=== PATIENT | male | born 1940 | race Caucasian/White ===

== ENCOUNTER 2021-01-23 10:01 | Outpatient (CLI) | payer BC | END 2021-01-23 10:02 | disposition home or self-care (01) | LOC: CSHWCC 10:01 | PROVIDERS: ATTEND Nurse Practitioner Family | DX: I87.332 Chronic venous hypertension (idiopathic) with ulcer and inflammation of left lower extremity (principal); E10.622 Type 1 diabetes mellitus with other skin ulcer; L97.222 Non-pressure chronic ulcer of left calf with fat layer exposed; L97.322 Non-pressure chronic ulcer of left ankle with fat layer exposed; R60.0 Localized edema; D64.9 Anemia, unspecified; E03.8 Other specified hypothyroidism; E10.40 Type 1 diabetes mellitus with diabetic neuropathy, unspecified; E78.2 Mixed hyperlipidemia; I10 Essential (primary) hypertension; I87.2 Venous insufficiency (chronic) (peripheral); W17.2XXD Fall into hole, subsequent encounter | CPT/HCPCS: 11042; 99213; G0463 ==

== ENCOUNTER 2021-02-06 09:17 | Outpatient (CLI) | payer BC | END 2021-02-06 09:18 | disposition home or self-care (01) | LOC: CSHWCC 09:17 | PROVIDERS: ATTEND Nurse Practitioner Family | DX: I87.332 Chronic venous hypertension (idiopathic) with ulcer and inflammation of left lower extremity (principal); E10.622 Type 1 diabetes mellitus with other skin ulcer; L97.222 Non-pressure chronic ulcer of left calf with fat layer exposed; L97.322 Non-pressure chronic ulcer of left ankle with fat layer exposed; R60.0 Localized edema; D64.9 Anemia, unspecified; E03.8 Other specified hypothyroidism; E10.40 Type 1 diabetes mellitus with diabetic neuropathy, unspecified; E78.2 Mixed hyperlipidemia; I10 Essential (primary) hypertension; I87.2 Venous insufficiency (chronic) (peripheral); W17.2XXD Fall into hole, subsequent encounter | CPT/HCPCS: 11042; 99213; G0463 ==

== ENCOUNTER 2021-02-19 11:10 | Outpatient (CLI) | payer BC | END 2021-02-19 11:11 | disposition home or self-care (01) | LOC: CSHWCC 11:10 | PROVIDERS: ATTEND Nurse Practitioner Family | DX: I87.332 Chronic venous hypertension (idiopathic) with ulcer and inflammation of left lower extremity (principal); I87.2 Venous insufficiency (chronic) (peripheral); E10.622 Type 1 diabetes mellitus with other skin ulcer; L97.222 Non-pressure chronic ulcer of left calf with fat layer exposed; L97.322 Non-pressure chronic ulcer of left ankle with fat layer exposed; R60.0 Localized edema; E03.8 Other specified hypothyroidism; E10.40 Type 1 diabetes mellitus with diabetic neuropathy, unspecified; E78.2 Mixed hyperlipidemia; D64.9 Anemia, unspecified; W17.2XXD Fall into hole, subsequent encounter | CPT/HCPCS: 87070; 87077; 87186; 87205; 99213; G0463 ==

== ENCOUNTER 2021-02-23 12:01 | Outpatient (CLI) | payer BC | END 2021-02-23 12:02 | disposition home or self-care (01) | LOC: CSHWCC 12:01 | PROVIDERS: ATTEND Nurse Practitioner Family | DX: I87.332 Chronic venous hypertension (idiopathic) with ulcer and inflammation of left lower extremity (principal); L97.222 Non-pressure chronic ulcer of left calf with fat layer exposed; L97.322 Non-pressure chronic ulcer of left ankle with fat layer exposed; R60.0 Localized edema; D64.9 Anemia, unspecified; E03.8 Other specified hypothyroidism; E10.622 Type 1 diabetes mellitus with other skin ulcer; E10.40 Type 1 diabetes mellitus with diabetic neuropathy, unspecified; E78.2 Mixed hyperlipidemia; I10 Essential (primary) hypertension; I87.2 Venous insufficiency (chronic) (peripheral); W17.2XXA Fall into hole, initial encounter | CPT/HCPCS: 99213; G0463 ==

== ENCOUNTER 2021-03-27 11:11 | Outpatient (CLI) | payer BC | END 2021-03-27 11:12 | disposition home or self-care (01) | LOC: CSHWCC 11:11 | PROVIDERS: ATTEND Nurse Practitioner Family | DX: I87.332 Chronic venous hypertension (idiopathic) with ulcer and inflammation of left lower extremity (principal); E10.622 Type 1 diabetes mellitus with other skin ulcer; L97.222 Non-pressure chronic ulcer of left calf with fat layer exposed; L97.322 Non-pressure chronic ulcer of left ankle with fat layer exposed; R60.0 Localized edema; D64.9 Anemia, unspecified; E03.8 Other specified hypothyroidism; E10.40 Type 1 diabetes mellitus with diabetic neuropathy, unspecified; I10 Essential (primary) hypertension; I87.2 Venous insufficiency (chronic) (peripheral); W17.2XXD Fall into hole, subsequent encounter ==

== ENCOUNTER 2021-05-29 07:58 | Outpatient (CLI) | payer MEDICARE, BC | END 2021-05-29 07:59 | disposition home or self-care (01) | LOC: CSHWCC 07:58 | PROVIDERS: ATTEND Nurse Practitioner Family | DX: I87.332 Chronic venous hypertension (idiopathic) with ulcer and inflammation of left lower extremity (principal); I87.2 Venous insufficiency (chronic) (peripheral); E10.622 Type 1 diabetes mellitus with other skin ulcer; L97.222 Non-pressure chronic ulcer of left calf with fat layer exposed; R60.0 Localized edema; D64.9 Anemia, unspecified; E03.8 Other specified hypothyroidism; E10.40 Type 1 diabetes mellitus with diabetic neuropathy, unspecified; E78.2 Mixed hyperlipidemia; W17.2XXD Fall into hole, subsequent encounter | CPT/HCPCS: 29581; 99213; G0463 ==

== ENCOUNTER 2021-06-05 08:13 | Outpatient (CLI) | payer MEDICARE, BC | END 2021-06-05 08:14 | disposition home or self-care (01) | LOC: CSHWCC 08:13 | PROVIDERS: ATTEND Nurse Practitioner Family | DX: I87.332 Chronic venous hypertension (idiopathic) with ulcer and inflammation of left lower extremity (principal); I87.2 Venous insufficiency (chronic) (peripheral); E10.622 Type 1 diabetes mellitus with other skin ulcer; L97.222 Non-pressure chronic ulcer of left calf with fat layer exposed; R60.0 Localized edema; D64.9 Anemia, unspecified; E03.8 Other specified hypothyroidism; E10.40 Type 1 diabetes mellitus with diabetic neuropathy, unspecified; E78.2 Mixed hyperlipidemia; W17.2XXD Fall into hole, subsequent encounter | CPT/HCPCS: 29581; 99213; G0463 ==

== ENCOUNTER 2021-06-12 08:22 | Outpatient (CLI) | payer MEDICARE, BC | END 2021-06-12 08:23 | disposition home or self-care (01) | LOC: CSHWCC 08:22 | PROVIDERS: ATTEND Nurse Practitioner Family | DX: I87.332 Chronic venous hypertension (idiopathic) with ulcer and inflammation of left lower extremity (principal); I87.2 Venous insufficiency (chronic) (peripheral); E10.622 Type 1 diabetes mellitus with other skin ulcer; L97.222 Non-pressure chronic ulcer of left calf with fat layer exposed; R60.0 Localized edema; E10.40 Type 1 diabetes mellitus with diabetic neuropathy, unspecified; E03.8 Other specified hypothyroidism; D64.9 Anemia, unspecified; E78.2 Mixed hyperlipidemia; W17.2XXD Fall into hole, subsequent encounter | CPT/HCPCS: 99213; G0463 ==

== ENCOUNTER 2022-02-28 09:32 | Inpatient (IN) | payer MEDICARE, BC ==
[2022-02-28 10:47] LABS: #Basophils 0.1 10x3/uL (0.0-0.2); #Eosinphils 0.1 10x3/uL (0.0-0.5); #Monocytes 0.7 10x3/uL (0.0-1.1); #Neutrophils 7.1 10x3/uL (1.5-8.4); %Basophils 0.6 % (0.0-2.0); %Lymphocytes 11.1 % (18.0-47.0); %Monocytes 8.1 % (0.0-10.0); %Neutrophils 78.9 % (40.0-75.0); Hemoglobin 9.4 g/dL (13.5-17.5); Mean Corpuscular HGB CONC 33.6 g/dL (32.0-36.0); Mean Corpuscular Hemoglobin 34.7 pg (27.0-33.0); Mean Corpuscular Volume 103.3 fl (81.2-95.1); Mean Platelet Volume 10.9 fl (7.4-10.4); Platelet Count 203 10x3/uL (150-450); RBC Distribution Width 14.1 % (11.5-14.5); Red Blood Cell (RBC) Count 2.71 10x6/uL (4.32-5.72)
[2022-02-28 11:06] LABS: ALT (SGPT) 39 U/L (8-55); AST (SGOT) 39 U/L (5-34); Albumin 3.8 g/dL (3.4-4.8); Alkaline Phosphatase 65 U/L (40-110); Anion Gap 17 mmol/L (10-20); BUN (Urea Nitrogen) 44 mg/dL (8.4-25.7); Bilirubin, Total 0.9 mg/dL (0.2-1.2); Calc. Creatinine Clearance 0 mL/min (70-130); Calcium 9.3 mg/dL (7.8-10.44); Carbon Dioxide 18 mmol/L (23-31); Chloride 111 mmol/L (98-107); Globulin 3.4 g/dL (2.4-3.5); Glucose 210 mg/dL (83-110); Potassium 5.1 mmol/L (3.5-5.1); Protein, Total 7.2 g/dL (5.8-8.1); Sodium 141 mmol/L (136-145)
[2022-02-28 14:09] LABS: Troponin I 0.302 ng/mL (< 0.028)
[2022-02-28] MEDS ORDERED: Enoxaparin Sodium 60 MG/0.6 ML SYRINGE ONE (14:34)
[2022-02-28] MEDS ORDERED: Enoxaparin Sodium 80 MG/0.8 ML SYRINGE ONE (14:35)
[2022-02-28] MEDS ORDERED: Dextrose 50% Abboject 50 ML SYRINGE SLOW IVP PRN (15:39)
[2022-02-28] MEDS ORDERED: Nitroglycerin 0.4 MG TAB (25 Tab Bottle) SL PRN (15:39)
[2022-02-28] MEDS ORDERED: Dextrose 5% in Water 1,000 ML IV PRN (15:39)
[2022-02-28 17:32] VITALS: BMI 23.8
[2022-02-28 17:36] LABS: Troponin I 0.883 ng/mL (< 0.028)
[2022-02-28] MEDS ORDERED: Aspirin 81 mg Enteric Coated Tablet PO SCH (18:00)
[2022-02-28] MEDS: Carvedilol 3.125 MG TAB PO SCH (18:17)
[2022-02-28] MEDS ORDERED: TICAGRELOR 90 MG TABLET PO SCH (18:30)
[2022-02-28] MEDS: TICAGRELOR 90 MG TABLET PO SCH (20:10)
[2022-03-01] MEDS: Enoxaparin Sodium 80 MG/0.8 ML SYRINGE SC SCH ×2 (03:40→11:48)
[2022-03-01 05:19] LABS: #Basophils 0.1 10x3/uL (0.0-0.2); #Eosinphils 0.3 10x3/uL (0.0-0.5); #Monocytes 0.8 10x3/uL (0.0-1.1); #Neutrophils 5.6 10x3/uL (1.5-8.4); %Basophils 0.6 % (0.0-2.0); %Eosinophils 3.2 % (0.0-6.0); %Lymphocytes 18.2 % (18.0-47.0); %Neutrophils 67.8 % (40.0-75.0); Hemoglobin 9.5 g/dL (13.5-17.5); Mean Corpuscular HGB CONC 34.3 g/dL (32.0-36.0); Mean Corpuscular Hemoglobin 34.4 pg (27.0-33.0); Mean Corpuscular Volume 100.4 fl (81.2-95.1); Mean Platelet Volume 10.9 fl (7.4-10.4); Platelet Count 201 10x3/uL (150-450); Red Blood Cell (RBC) Count 2.76 10x6/uL (4.32-5.72); White Blood Cell (WBC) Count 8.2 10x3/uL (3.5-10.5)
[2022-03-01 05:24] LABS: Anion Gap 15 mmol/L (10-20); BUN (Urea Nitrogen) 37 mg/dL (8.4-25.7); Calc. Creatinine Clearance 64 mL/min (70-130); Calcium 8.8 mg/dL (7.8-10.44); Carbon Dioxide 18 mmol/L (23-31); Cardiac Risk 2.1 (Less than 4.5); Chloride 113 mmol/L (98-107); Cholesterol 116 mg/dl (< 200 Desired); Glucose 152 mg/dL (83-110); HDL Cholesterol 55 mg/dL (>60 Neg Risk); LDL Cholesterol, Calculated 49 mg/dL; Potassium 5.1 mmol/L (3.5-5.1); Sodium 141 mmol/L (136-145); Triglycerides 60 mg/dL (Less than 150)
[2022-03-01] MEDS: Levothyroxine Sodium 112 MCG TAB PO SCH (05:30)
[2022-03-01] MEDS ORDERED: Carvedilol 6.25 MG TAB PO SCH (08:30)
[2022-03-01] MEDS: TICAGRELOR 90 MG TABLET PO SCH ×2 (08:45→22:27)
[2022-03-01] MEDS: Aspirin Chewable 81 MG TAB PO SCH (08:45)
[2022-03-01] MEDS: Calcium Carbonate 600 MG TAB PO SCH (08:45)
[2022-03-01] MEDS: Rosuvastatin 10 MG TAB PO SCH (08:45)
[2022-03-01] MEDS ORDERED: Communication Order-Pharmacy FS SCH (09:00)
[2022-03-01] MEDS: Carvedilol 3.125 MG TAB PO SCH (09:33)
[2022-03-01 13:18] LABS: Hemoglobin A1c 6.9 % (4.0-6.0)
[2022-03-01] MEDS: Carvedilol 6.25 MG TAB PO SCH (16:02)
[2022-03-01 20:26] LABS: SARS-CoV-2 PCR by NAA Not Detected (NotDetected)
[2022-03-02 05:21] LABS: #Basophils 0.1 10x3/uL (0.0-0.2); #Eosinphils 0.2 10x3/uL (0.0-0.5); #Monocytes 0.9 10x3/uL (0.0-1.1); #Neutrophils 4.4 10x3/uL (1.5-8.4); %Basophils 0.9 % (0.0-2.0); %Eosinophils 3.4 % (0.0-6.0); %Lymphocytes 21.6 % (18.0-47.0); %Monocytes 12.2 % (0.0-10.0); %Neutrophils 61.6 % (40.0-75.0); Hemoglobin 9.4 g/dL (13.5-17.5); Mean Corpuscular HGB CONC 34.4 g/dL (32.0-36.0); Mean Corpuscular Hemoglobin 33.8 pg (27.0-33.0); Mean Corpuscular Volume 98.2 fl (81.2-95.1); Mean Platelet Volume 11.1 fl (7.4-10.4); Platelet Count 197 10x3/uL (150-450); RBC Distribution Width 13.7 % (11.5-14.5); Red Blood Cell (RBC) Count 2.78 10x6/uL (4.32-5.72); White Blood Cell (WBC) Count 7.1 10x3/uL (3.5-10.5)
[2022-03-02 05:31] LABS: INR-International Normal Ratio 1.2; PTT 43.6 sec (22.0-33.0); Prothrombin Time 13.1 sec (9.5-12.1)
[2022-03-02 05:33] LABS: ALT (SGPT) 30 U/L (8-55); AST (SGOT) 29 U/L (5-34); Albumin 3.5 g/dL (3.4-4.8); Alkaline Phosphatase 58 U/L (40-110); Anion Gap 14 mmol/L (10-20); BUN (Urea Nitrogen) 29 mg/dL (8.4-25.7); Bilirubin, Total 1.1 mg/dL (0.2-1.2); Calc. Creatinine Clearance 59 mL/min (70-130); Calcium 8.9 mg/dL (7.8-10.44); Carbon Dioxide 20 mmol/L (23-31); Chloride 110 mmol/L (98-107); Globulin 3.1 g/dL (2.4-3.5); Glucose 170 mg/dL (83-110); Protein, Total 6.6 g/dL (5.8-8.1); Sodium 139 mmol/L (136-145)
[2022-03-02] MEDS ORDERED: Heparin 10,000 UNITS/ 10 ML VIAL ONE (06:16)
[2022-03-02] MEDS ORDERED: Nitroglycerin 50 MG/250 ML BOT 250 ML ONE (06:16)
[2022-03-02] MEDS ORDERED: Verapamil 5 MG/2 ML VIAL ONE (06:17)
[2022-03-02] MEDS ORDERED: Midazolam HCl 2 mg/2 ml Vial ONE (06:18)
[2022-03-02] MEDS ORDERED: Fentanyl 100 MCG/2 ML VIAL ONE (06:18)
[2022-03-02] MEDS ORDERED: Bivalirudin 250 MG VIAL ONE (06:28)
[2022-03-02] MEDS ORDERED: Lidocaine 1% PF 5 ML VIAL ONE ×2 (06:35→06:50)
[2022-03-02] MEDS ORDERED: Adenosine 6 MG/2 ML VIAL ONE (07:30)
[2022-03-02] MEDS: Levothyroxine Sodium 112 MCG TAB PO SCH (08:20)
[2022-03-02] MEDS: Calcium Carbonate 600 MG TAB PO SCH (08:43)
[2022-03-02] MEDS: Aspirin Chewable 81 MG TAB PO SCH (08:43)
[2022-03-02] MEDS: TICAGRELOR 90 MG TABLET PO SCH (08:43)
[2022-03-02] MEDS: Carvedilol 6.25 MG TAB PO SCH (08:43)
[2022-03-02] MEDS: Rosuvastatin 10 MG TAB PO SCH (08:43)
[2022-03-02] MEDS ORDERED: Acetaminophen/Codeine 30-300mg Tablet PO PRN ×2 (08:47)
[2022-03-02] MEDS ORDERED: Sodium Chloride 0.9% 200 ML IV PRN (08:47)
[2022-03-02] MEDS ORDERED: Nitroglycerin 0.4 MG TAB (25 Tab Bottle) SL PRN (08:47)
[2022-03-02] MEDS ORDERED: Iopamidol 300 61% 100 ML VIAL FS ONE (09:26)
[2022-03-02 12:46] VITALS: TEMP 97.5
[2022-03-02 13:50] VITALS: BP 121/71
[2022-03-07] MEDS ORDERED: Cyanocobalamin (Vitamin B-12) 1,000 MCG TAB PO SCH (09:00)
== END 2022-03-02 16:09 | disposition home or self-care (01) | DRG 247 ==
LOC: CSHERS 09:32 → CSHTELE 16:15
PROVIDERS: ADMIT Internal Medicine; ATTEND Internal Medicine
PROC: 027135Z Dilation of Coronary Artery, Two Arteries with Two Drug-eluting Intraluminal Devices, Percutaneous Approach (ICD-10-PCS; principal; 2022-03-02)
PROC: 4A023N7 Measurement of Cardiac Sampling and Pressure, Left Heart, Percutaneous Approach (ICD-10-PCS; 2022-03-02)
PROC: B2111ZZ Fluoroscopy of Multiple Coronary Arteries using Low Osmolar Contrast (ICD-10-PCS; 2022-03-02)
PROC: B2151ZZ Fluoroscopy of Left Heart using Low Osmolar Contrast (ICD-10-PCS; 2022-03-02)
DX: I21.4 Non-ST elevation (NSTEMI) myocardial infarction (principal); I50.22 Chronic systolic (congestive) heart failure; I25.10 Atherosclerotic heart disease of native coronary artery without angina pectoris; E03.9 Hypothyroidism, unspecified; E78.5 Hyperlipidemia, unspecified; E11.9 Type 2 diabetes mellitus without complications; M54.9 Dorsalgia, unspecified; E89.2 Postprocedural hypoparathyroidism; D53.9 Nutritional anemia, unspecified; G40.909 Epilepsy, unspecified, not intractable, without status epilepticus; M19.012 Primary osteoarthritis, left shoulder; M19.011 Primary osteoarthritis, right shoulder; I49.5 Sick sinus syndrome; R58 Hemorrhage, not elsewhere classified; I25.5 Ischemic cardiomyopathy; I11.0 Hypertensive heart disease with heart failure; Z20.822 Contact with and (suspected) exposure to COVID-19; Z90.49 Acquired absence of other specified parts of digestive tract; Z95.0 Presence of cardiac pacemaker; I25.2 Old myocardial infarction; Z79.4 Long term (current) use of insulin; Z95.5 Presence of coronary angioplasty implant and graft; Z88.2 Allergy status to sulfonamides; Z88.1 Allergy status to other antibiotic agents; Z79.899 Other long term (current) drug therapy; Z79.82 Long term (current) use of aspirin; Z79.890 Hormone replacement therapy; Z90.81 Acquired absence of spleen
CPT/HCPCS: 36416; 71045; 80048; 80053; 80061; 82553; 83036; 83735; 84443; 84484; 85025; 85347; 85610; 85730; 92928; 93005; 93010; 93458; 94760; 96372; 99152; 99153; C1725; C1769; C1874; C1887; C1894; C9600; J0153; J0583; J1644; J1650; J2250; J3010; U0003; U0005

== ENCOUNTER 2022-06-02 12:36 | Outpatient (CLI) | payer MEDICARE, BC | END 2022-06-02 12:37 | disposition home or self-care (01) | LOC: CSHLAB 12:36 | PROVIDERS: ATTEND Internal Medicine Medical Oncology | DX: D50.8 Other iron deficiency anemias (principal); D51.3 Other dietary vitamin B12 deficiency anemia; D69.3 Immune thrombocytopenic purpura; Z20.822 Contact with and (suspected) exposure to COVID-19 | CPT/HCPCS: 87811 ==

== ENCOUNTER 2022-06-07 09:10 | Day surgery (SDC) | payer MEDICARE, BC ==
[2022-06-07 10:09] VITALS: TEMP 98.3; BMI 23.6
[2022-06-07 10:19] LABS: INR-International Normal Ratio 1.2; PTT 38.2 sec (22.0-33.0); Prothrombin Time 12.5 sec (9.5-12.1)
[2022-06-07] MEDS ORDERED: Lidocaine 1% PF 5 ML VIAL ONE (10:30)
[2022-06-07] MEDS ORDERED: Sodium Bicarbonate 2.5 MEQ/5 ML VIAL ONE (10:31)
[2022-06-07 13:35] VITALS: BP 148/68
== END 2022-06-07 11:45 | disposition home or self-care (01) ==
LOC: CSHCT 09:10
PROVIDERS: ATTEND Internal Medicine Medical Oncology
PROC: 07DR3ZX Extraction of Iliac Bone Marrow, Percutaneous Approach, Diagnostic (ICD-10-PCS; principal; 2022-06-07)
DX: D75.89 Other specified diseases of blood and blood-forming organs (principal); D50.8 Other iron deficiency anemias; D51.3 Other dietary vitamin B12 deficiency anemia; D69.3 Immune thrombocytopenic purpura; E10.9 Type 1 diabetes mellitus without complications; I10 Essential (primary) hypertension; E78.5 Hyperlipidemia, unspecified; M06.9 Rheumatoid arthritis, unspecified; E03.9 Hypothyroidism, unspecified; Z90.49 Acquired absence of other specified parts of digestive tract; Z79.899 Other long term (current) drug therapy
CPT/HCPCS: 38222; 85097; 85610; 85730; 88184; 88185; 88237; 88264; 88280; 88305; 88311; 88313; 88341; 88342

== ENCOUNTER 2022-07-07 20:02 | Emergency (ER) | payer MEDICARE, BC ==
[2022-07-07] MEDS ORDERED: Oxymetazoline HCl 0.05% ( 15 ML ) ONE (21:14)
[2022-07-07 21:43] LABS: #Basophils 0.1 10x3/uL (0.0-0.2); #Eosinphils 0.4 10x3/uL (0.0-0.5); #Monocytes 1.2 10x3/uL (0.0-1.1); #Neutrophils 4.6 10x3/uL (1.5-8.4); %Basophils 0.9 % (0.0-2.0); %Eosinophils 5.1 % (0.0-6.0); %Lymphocytes 24.2 % (18.0-47.0); %Monocytes 14.1 % (0.0-10.0); %Neutrophils 55.5 % (40.0-75.0); Hemoglobin 9.3 g/dL (13.5-17.5); Mean Corpuscular HGB CONC 34.2 g/dL (32.0-36.0); Mean Corpuscular Volume 96.5 fl (81.2-95.1); Mean Platelet Volume 10.5 fl (7.4-10.4); Platelet Count 245 10x3/uL (150-450); RBC Distribution Width 13.9 % (11.5-14.5); Red Blood Cell (RBC) Count 2.82 10x6/uL (4.32-5.72); White Blood Cell (WBC) Count 8.2 10x3/uL (3.5-10.5)
[2022-07-07 21:52] LABS: INR-International Normal Ratio 1.2; PTT 39.2 sec (22.0-33.0); Prothrombin Time 13.3 sec (9.5-12.1)
[2022-07-07 21:53] LABS: Anion Gap 13 mmol/L (10-20); BUN (Urea Nitrogen) 42 mg/dL (8.4-25.7); Calc. Creatinine Clearance 0 mL/min (70-130); Carbon Dioxide 22 mmol/L (23-31); Chloride 109 mmol/L (98-107); Estimated GFR 60; Glucose 122 mg/dL (83-110); Sodium 140 mmol/L (136-145)
== END 2022-07-07 22:45 | disposition home or self-care (01) ==
LOC: CSHERS 20:02
DX: R04.0 Epistaxis (principal); I25.2 Old myocardial infarction; D64.9 Anemia, unspecified; E03.9 Hypothyroidism, unspecified; E10.9 Type 1 diabetes mellitus without complications; E78.5 Hyperlipidemia, unspecified; Z79.4 Long term (current) use of insulin; Z79.899 Other long term (current) drug therapy; Z79.82 Long term (current) use of aspirin
CPT/HCPCS: 80048; 85025; 85610; 85730; 99283